=== PATIENT | male | born 1960 | race Caucasian/White ===

== ENCOUNTER 2020-07-07 06:15 | Day surgery (SDC) | payer OTHER ==
--- NOTE | 2020-07-06 15:04 | NUR ---
FAX EKG TO DR OLIVARES OFFICE X 2.
[~2020-07-07 06:15] MED LIST: ACTOS45 MG PO; B-12 DOTS500 MCG PO; BAYER CHEWABLE81 MG PO; GLIPIZIDE XL10 MG PO; JANUMET XR 1001 EACH PO; LANTUS SOL100 UNIT/1 SUB-Q; LISINOPRIL10 MG PO; METFORMIN HCL1000 MG PO; MULTI VITAMIN1 EACH PO; NOVOLIN 70100 UNIT/2 SQ; SIMVASTATIN10 MG PO
--- NOTE | 2020-07-07 08:47 | NUR ---
07/07/20 0847 Kimi Griffin 0893 PT ARRIVED TO PACU WITH ORAL AIRWAY IN PLACE, PT ASLEEP AND ON 10L VIA MASK. VSS. 0845 PT WAKES TO VERBAL STIMULI AND ORAL AIRWAY REMOVED. MONI BOWLES AT BEDSIDE. PT REORIENTED TO PACU AND EASILY FALLS BACK TO SLEEP.
--- NOTE | 2020-07-07 11:52 | OR ---
[facility] [address], [place] [address] Signed DATE OF OPERATION: 07/07/2020 SURGEON: Yolanda Olivares MD PREOPERATIVE DIAGNOSIS: Guaiac-positive stool. POSTOPERATIVE DIAGNOSES: 1. A 5 mm polyps x4 at 10 cm. 2. A 5 mm polyps x2 at 70 cm. 3. A 5 mm polyps x1 at the ileocecal valve, 90 cm, 80 cm, 68 cm, 62 cm, and 34 cm. 4. [id number] left-sided diverticulosis. PROCEDURE: Colonoscopy with hot biopsy. ESTIMATED BLOOD LOSS: None. INDICATIONS: Dejon is a 60-year-old, obese, diabetic gentleman, asked to see me for a colonoscopy. He was guaiac-positive earlier in 2019. He has no lower GI complaints. He spoked about colonoscopy around age 38 over in [place], [place]. He said it was all negative. He cannot remember why he had that performed. He has no family history of colon cancer or polyps. Although, today he thinks maybe his dad may have had colonic polyps. He lives [place] 2[place] 3 hours away in [place], [place]. Consequently, he came up to a hotel yesterday with his dad to do his liquid diet and his bowel prep. He presents today for this procedure. In the office, I had given him a pamphlet on colonoscopy. We looked at that together along with the risks including, but not limited to gas bloating, crampy abdominal pain, bleeding, perforation requiring surgery, and missed diagnosis. He understands the need for IV conscious sedation. Given his rather large body mass index with a very full round face, very heavy full face jaquez, heavy chest and abdomen, diabetes and so forth. We asked that an anesthesia provider help us with increased monitoring sedation with propofol that proved to be a varner decision as he ended up with an LMA. He had expressed understanding and wished to proceed. DESCRIPTION OF PROCEDURE: Dejon was taken into our endoscopy suite and placed in the left lateral decubitus position. He was initially given IV sedation with propofol. Within a few minutes, an LMA was added for better airway control. A digital rectal exam was performed and this Electronically Signed By: YOLANAD OLIVARES MD 07/07/20 1152 PATIENT NAME: DEJON QUACH OPERATIVE REPORT DATE OF : 56 REPORT #: [id number] PHYSICIAN: YOLANDA OLIVARES MD PCP: LAURITA FOSTER MD REPORT IS CONFIDENTIAL AND NOT TO BE RELEASED WITHOUT AUTHORIZATION [facility] [address] [place], [place] [address] Signed was unremarkable. The adult colonoscope was introduced and advanced all around into the cecum under direct visualization of camera. Unfortunately, he had several areas of liquid particulate stool matter, much of that was suctioned out. There was just a little bit in the left colon, could not quite get all of that. However, we could easily see the appendiceal orifice and ileocecal valve. The scope was then slowly withdrawn. Pictures were taken throughout for photodocumentation. The above-mentioned polyps were all sessile and removed with the help of a hot biopsy forceps. He does have diverticula in the left side of his colon. They were moderate in size, but few in number, and scattered about. Once in the rectum, the scope was retroflexed and really no additional pathology noted above the anal canal. After this, the gas was suctioned out, the colonoscope removed. Dejon tolerated procedure quite well. RECOMMENDATIONS: Dejon might consider repeat colonoscopy within 12 months with a double bowel prep. He currently had 12 sessile polyps removed. We will see him back in the office in 7 to 14 days then to review the results. Yolanda Olivares MD ALB/MODL /[id number] cc: Yolanda Olivares MD [facility] Copies: YOLANDA OLIVARES MD [facility] ~ Electronically Signed By: YOLANDA OLIVARES MD 07/07/20 1152 PATIENT NAME: DEJON QUACH OPERATIVE REPORT DATE OF : 56 REPORT #: [id number] PHYSICIAN: YOLANDA OLIVARES MD PCP: LAURITA FOSTER MD REPORT IS CONFIDENTIAL AND NOT TO BE RELEASED WITHOUT AUTHORIZATION
--- NOTE | 2020-07-07 12:44 | NUR ---
PT ALERT, ORIENTED AND BROUGHT HERE FROM [facility] BY PARENTS ANGELICA. PT HAS HAD PREVIOUS SCOPES, ALL QUESTIONS ASKED ANSWERED. PT REQUESTED PRAYER, WILL FOLLOW NEEDED
--- NOTE | 2020-07-11 14:02 | PATH ---
[facility] [address] [place] [address] Signed SPECIMEN(S): A RECTAL POLYP AT 10 CM SPECIMEN(S): B COLON POLYP AT 70 CM SPECIMEN(S): C COLON POLYP AT 80 CM SPECIMEN(S): D ILEOCECAL VALVE POLYP SPECIMEN(S): E COLON POLYP AT 90 CM SPECIMEN(S): F COLON POLYP AT 68 SPECIMEN(S): G COLON POLYP AT 62 CM SPECIMEN(S): H COLON POLYP AT 34 CM SPECIMEN SOURCE: A. RECTAL POLYP AT 10 CM B. COLON POLYP AT 70 CM C. COLON POLYP AT 80 CM D. ILEOCECAL VALVE POLYP E. COLON POLYP AT 90 CM F. COLON POLYP AT 68 G. COLON POLYP AT 62 CM H. COLON POLYP AT 34 CM CLINICAL HISTORY: Guaiac positive, abdominal pain. Post DX: Diverticulosis, colorectal polyps. MICROSCOPIC DESCRIPTION: Histologic sections of all submitted blocks are examined by light microscopy. These findings, together with the gross examination, support the pathologic diagnosis. FINAL PATHOLOGIC DIAGNOSIS: A. Rectal polyp at 10 cm, biopsy: - Tubular adenoma (multiple fragments). B. Colon polyp at 70 cm, biopsy: - Tubular adenoma (multiple fragments) C. Colon polyp at 80 cm, biopsy: - Polypoid colonic mucosa with focal epithelial erosion and mixed stromal inflammation. - Negative for evidence of malignancy. D. Ileocecal valve polyp, biopsy: - Tubular adenoma (two fragments). E. Colon polyp at 90 cm, biopsy: - Serrated polyp/adenoma (two fragments). F. Colon polyp at 68 cm, biopsy: - Tubular adenoma (one fragment). PATIENT NAME: BOONE QUACH PATHOLOGY DATE OF : 56 REPORT #: [id number] PHYSICIAN: SIDRA PIMENTEL PCP: LAURITA FOSTER MD REPORT IS CONFIDENTIAL AND NOT TO BE RELEASED WITHOUT AUTHORIZATION [facility] [address] [place], [place] [address] Signed G. Colon polyp at 62 cm, biopsy: - Serrated polyp/adenoma (one fragment). H. Colon polyp at 34 cm, biopsy: - Serrated polyp/adenoma (one fragment). JVR:[id number] GROSS DESCRIPTION: Eight specimens are received in eight containers, labeled "MW." A. The specimen, labeled "MW, 1," and designated on the requisition "rectum polyp at 10 cm," is received in formalin and consists of multiple lizama soft tissue fragments that measure 0.3cm in greatest dimension. The specimen is entirely submitted in cassette (A1). B. The specimen, labeled "MW, 2," and designated on the requisition "colon polyp at 70 cm," is received in formalin and consists of five lizama soft tissue fragments that measure 0.1-0.4 cm in greatest dimension. The specimen is entirely submitted in cassette (B1). Note: The smallest fragment is minute and may not survive processing. C. The specimen, labeled "MW, 3," and designated on the requisition "colon polyp at 80 cm," is received in formalin and consists of three lizama soft tissue fragments that measure 0.3 cm in greatest dimension. The specimen is entirely submitted in cassette (C1). D. The specimen, labeled "MW, 4," and designated on the requisition "ileocecal valve polyp," is received in formalin and consists of two lizama soft tissue fragments that measure 0.3 cm in greatest dimension. The specimen is entirely submitted in cassette (D1). E. The specimen, labeled "MW, 5," and designated on the requisition "colon polyp at 90 cm," is received in formalin and consists of three lizama soft tissue fragments that measure 0.3-0.4 cm in greatest dimension. The specimen is entirely submitted in cassette (E1). F. The specimen, labeled "MW, 6," and designated on the requisition "colon polyp at 68 cm," is received in formalin and consists of one lizama soft tissue fragments that measure 0.3 cm in greatest dimension. The specimen is entirely submitted in cassette (F1). G. The specimen, labeled "MW, 7," and designated on the requisition "colon polyp at 62 cm," is received in formalin and consists of one lizama soft tissue fragment that measures 0.3 cm in greatest dimension. The specimen is entirely submitted in cassette (G1). H. The specimen, labeled "MW, 8" and designated on the requisition "colon polyp at 34 cm," is received in formalin and consists of one lizama soft tissue fragment that measures 0.3 cm in greatest PATIENT NAME: BOONE QUACH PATHOLOGY DATE OF : 56 REPORT #: [id number] PHYSICIAN: SIDRA PIMENTEL PCP: LAURITA FOSTER MD REPORT IS CONFIDENTIAL AND NOT TO BE RELEASED WITHOUT AUTHORIZATION [address] [address] Signed dimension. The specimen is entirely submitted in cassette (H1). AT (under the direct supervision of a pathologist) The Gross Description was prepared using a voice recognition system. The report was reviewed for accuracy; however, sound-alike word errors, addition and/or deletions may occur. If there is any question about this report, please contact Client Services. PERFORMING LABORATORY: The technical component was performed by [facility], [address] [place] [address] ([employer] Operator: Clare Perez MD; CLIA# [id number]). Professional interpretation [place] [address]. Diagnostician: Alok Price MD Pathologist Electronically Signed 07/11/2020 Copies: ~ PATIENT NAME: BOONE QUACH PATHOLOGY DATE OF : 56 REPORT #: [id number] PHYSICIAN: SIDRA PIMENTEL PCP: LAURITA FOSTER MD REPORT IS CONFIDENTIAL AND NOT TO BE RELEASED WITHOUT AUTHORIZATION
== END 2020-07-07 09:23 | disposition home or self-care (01) ==
LOC: DS 06:15 → OPS 06:15 → DS 06:45 → OPS 09:23
PROVIDERS: ATTEND Colon & Rectal Surgery
DX: D12.6 Benign neoplasm of colon, unspecified (principal); D12.8 Benign neoplasm of rectum; K57.30 Diverticulosis of large intestine without perforation or abscess without bleeding; E78.5 Hyperlipidemia, unspecified; I10 Essential (primary) hypertension; E11.9 Type 2 diabetes mellitus without complications; Z79.4 Long term (current) use of insulin; E66.01 Morbid (severe) obesity due to excess calories; Z68.37 Body mass index [BMI] 37.0-37.9, adult; Z80.1 Family history of malignant neoplasm of trachea, bronchus and lung
CPT/HCPCS: 88305; J1610; J2704; J7121